=== PATIENT | female | born 1985 | race Caucasian/White ===

== ENCOUNTER → 2017-01-13 | Outpatient (CLI) | payer BC ==
[~2017-01-13] MED LIST: ACET50TA PO; COLACE PO; MILKSUS PO; MOTRIN PO; [UNRECOGNIZED DRUG - OTHER] TOP
--- NOTE | 2017-01-14 05:11 | REP ---
Clinical: Anatomical evaluation twin gestation . Comparison: 10/30/2016 . Findings: Examination demonstrates diamniotic dichorionic twin gestation. Placenta is are identified anteriorly and grade zero without evidence for placenta previa or abruption. Cervix measures 5.9 cm length and appears closed. Concordant growth is noted. Gestational age by LMP 19 weeks 5 days. TWIN A: Fetus in breech presentation along the maternal left side. motion is appreciated. Amniotic fluid volume is normal and the deepest pocket measures 4.3 cm. Gestational age by measurements 20 weeks 1 day. heart rate equals 153 beats per minute. Estimated weight 342 grams (67th percentile). Anatomical assessment demonstrates normal structures including cranium, choroid plexus, cavum, cerebellum/posterior fossa, facial features, lungs, four-chamber heart/ventricular outflow tracts, diaphragm, stomach, cord insertion/three-vessel cord, kidneys/bladder, spine, and extremities. TWIN B: Fetus in cephalic presentation along the maternal right side. motion is appreciated. Amniotic fluid volume is normal and the deepest pocket measures 3.7 cm. Gestational age by measurements 20 weeks 0 days. heart rate equals 165 beats per minute. Estimated weight 336 grams (63rd percentile). Anatomical assessment demonstrates normal structures including cranium, choroid plexus, cavum, cerebellum/posterior fossa, facial features, lungs, four-chamber heart/ventricular outflow tracts, diaphragm, stomach, cord insertion/three-vessel cord, kidneys/bladder, spine, and extremities. Impression: Diamniotic dichorionic twin gestation demonstrating appropriate and concordant interval growth. No gross abnormalities are identified. Anatomical assessment is normal for both fetuses. Signed by Den Ayers MD 01/14/2017 05:03 A
== END ==
LOC: M RAD 14:34
PROVIDERS: ATTEND Advanced Practice Midwife
DX: O30.042 Twin pregnancy, dichorionic/diamniotic, second trimester (principal)

== ENCOUNTER → 2017-02-22 | Outpatient (CLI) | payer BC ==
--- NOTE | 2017-02-23 09:47 | REP ---
TWIN OB ULTRASOUND: Real-time sonographic evaluation of the gravid uterus performed utilizing transabdominal technique. There is a single living intrauterine gestation, estimated gestational age 25 weeks 3 days, EDC 06/04/2017. This is a diamniotic dichorionic twin gestation. Placenta anterior and grade 0 with no previa or abruption. There is concordant growth of both twins. FETUS A: BPD 66 mm 26 weeks 4 days, 73rd percentile HC 242 mm 26 weeks 2 days, 68th percentile AC 211 mm 25 weeks 4 days, 55th percentile FL 46 mm 25 weeks 2 days, 47th percentile HC/AC ratio 1.15. Estimated weight 830 grams, 49th percentile. heart rate 145 beats per minute. Amniotic fluid volume within normal limits with deepest pocket of fluid around fetus A 5.3 cm. Four chamber heart, stomach, cord insertion, and bladder are visualized and are grossly unremarkable. position is breech on the maternal left side. FETUS B: BPD 60 mm 24 weeks 4 days, 33rd percentile HC 237 mm 25 weeks 5 days, 58th percentile AC 220 mm 26 weeks 3 days, 72nd percentile FL 45 mm 25 weeks 0 days, 42nd percentile HC/AC ratio 1.08. Estimated weight 864 grams, 56th percentile. heart rate 143 beats per minute. Amniotic fluid within normal limits with deepest pocket of fluid around fetus B 4.3 cm. Four chamber heart, stomach, bladder are visualized and are grossly unremarkable. position vertex on the maternal right side. Signed by Duke Spencer MD 02/23/2017 05:24 P
== END ==
LOC: M RAD 11:59
PROVIDERS: ATTEND Obstetrics & Gynecology
DX: O30.041 Twin pregnancy, dichorionic/diamniotic, first trimester (principal); Z3A.25 25 weeks gestation of pregnancy; Z36 Encounter for antenatal screening of mother

== ENCOUNTER → 2017-02-24 | Outpatient (CLI) | payer BC ==
[2017-02-24 13:32] LABS: MEAN CORPUSCULAR HEMOGLOBIN 32.2 pg (27.0-33.0); MEAN CORPUSCULAR HGB CONC 33.1 g/dl (32.0-36.5); MEAN CORPUSCULAR VOLUME 97.3 fl (80.0-96.0); WHITE BLOOD COUNT 6.2 K/mm3 (4.0-10.0)
== END ==
LOC: M SMT 08:18
PROVIDERS: ATTEND Obstetrics & Gynecology
DX: O30.041 Twin pregnancy, dichorionic/diamniotic, first trimester (principal)

== ENCOUNTER → 2017-04-06 | Outpatient (CLI) | payer BC ==
--- NOTE | 2017-04-06 10:24 | REP ---
Obstetric sonography: Multiple gestation. History: Twin gestation. Second trimester. Growth study. Findings: Scanning through the gravid uterus demonstrates diamniotic dichorionic twin gestation. Twin A is cephalic and along the maternal left. Twin B is cephalic along maternal right. Placentas are anterior grade 1 without evidence of placenta previa or abruption. Twin B is the presenting fetus at this time, low in the pelvis. Amniotic fluid is subjectively normal around both twins. The deepest pocket adjacent to twin A measures 3 cm and that adjacent to twin B 2.6 cm. There has been appropriate and concordant interval growth. No extrauterine abnormalities observed. The following anatomic structures are observed in twin A and are felt to be unremarkable: cranium, four-chamber heart, left-sided stomach, kidneys and bladder. The following anatomic structures are observed in twin B today and are felt to be unremarkable: cranium, four-chamber heart, left-sided stomach, abdominal wall cord insertion, kidneys and bladder. Biometry chart twin A: BPD 7.8 cm = 31 weeks 3 days Head circumference 29.0 cm = 32 weeks 0 days Abdominal circumference 30.1 cm = 34 weeks 0 days Femur length 6.1 cm = 31 weeks 4 days HC/AC ratio normal 0.97, cephalic index normal 0.75, estimated weight 2068 grams, 4 pounds 8 ounces, 70th percentile. heart rate 122 beats per minute. Biophysical profile score 8 out of a possible 8. S/D ratio in the umbilical cord artery by Doppler normal 3.0 Biometry chart twin B: BPD 7.8 cm = 31 weeks 3 days Head circumference 29.2 cm = 32 weeks 1 day Abdominal circumference 28.5 cm = 32 weeks 4 days Femur length 6.0 cm = 31 weeks 1 day HC/AC ratio normal 1.02, cephalic index normal 0.74, estimated weight 1878 grams, 4 pounds 2 ounces, 51st percentile. heart rate 144 beats per minute. Biophysical profile score 8 out of a possible 8. S/D ratio in the umbilical cord artery by Doppler normal 2.99. Impression: Viable twin intrauterine gestation both cephalic, fetus B presenting. Appropriate and concordant interval growth. Signed by Jacek Bennett MD 04/06/2017 02:51 P
== END ==
LOC: M RAD 08:51
PROVIDERS: ATTEND Advanced Practice Midwife
DX: O30.043 Twin pregnancy, dichorionic/diamniotic, third trimester (principal); Z3A.31 31 weeks gestation of pregnancy; Z36 Encounter for antenatal screening of mother

== ENCOUNTER → 2017-04-15 | Outpatient (CLI) | payer BC ==
[2017-04-15 14:01] LABS: MEAN CORPUSCULAR HEMOGLOBIN 32.2 pg (27.0-33.0); MEAN CORPUSCULAR HGB CONC 33.2 g/dl (32.0-36.5); RED CELL DISTRIBUTION WIDTH 14.3 % (11.5-14.5); WHITE BLOOD COUNT 7.9 K/mm3 (4.0-10.0)
== END ==
LOC: M SMT 10:57
PROVIDERS: ATTEND Specialist
DX: O30.043 Twin pregnancy, dichorionic/diamniotic, third trimester (principal); Z3A.36 36 weeks gestation of pregnancy

== ENCOUNTER → 2017-04-27 | Outpatient (CLI) | payer BC ==
--- NOTE | 2017-04-27 11:58 | REP ---
Obstetric ultrasound twin gestation. Follow-up study: Twin A is on the maternal left in a cephalic presentation. Twin B is on the right in a cephalic presentation. The as a diamniotic dichorionic twin gestation. The placentas are anterior and grade 1 maturity. There is no placenta previa or placental abruptio. heart weight of twin A is 130 beats per minute. For twin B there is cardiac activity, however, the heart rate is not recorded. Cervical length is not recorded. The deepest amniotic fluid pocket for twin A is 8.7 cm. The deepest amniotic fluid pocket for twin B is 6.4 cm. Based on today's ultrasound the gestational age for twin A is 35 weeks 2 days, and for twin B 34 weeks 6 days. There has been concordant growth. The weight for twin A is 2756 grams and for twin B 2524 grams. This is the 69th percentile for twin A and 51st percentile for twin B. Umbilical cord Doppler assessment: Twin A SD ratio 2.36 Resistive index 0.58 Diastolic flow velocity 23.9 cm/sec. Twin B : SD ratio 2.12 Resistive index 0.53 Diastolic flow velocity 16.9 cm/sec. These values are in their normal ranges. anatomy was normal on prior studies and is not repeated today. However, during the examination incidentally visualized and normal are for twin A four-chamber heart and stomach.; and for twin B four-chamber heart, stomach, kidneys and bladder. Signed by Duke Kapoor MD 04/27/2017 11:50 A
== END ==
LOC: M RAD 10:21
PROVIDERS: ATTEND Advanced Practice Midwife
DX: O30.043 Twin pregnancy, dichorionic/diamniotic, third trimester (principal); Z3A.35 35 weeks gestation of pregnancy

== ENCOUNTER → 2017-05-03 | Outpatient (REF) | payer BC ==
[~2017-05-03] MED LIST changes: +DICL10TA PO; +IBUP-1114 PO; +PRENTAB9 PO
== END ==
LOC: M LAB REF 16:50
PROVIDERS: ATTEND Specialist
DX: O30.043 Twin pregnancy, dichorionic/diamniotic, third trimester (principal); Z3A.36 36 weeks gestation of pregnancy

== ENCOUNTER 2017-05-22 11:43 | Inpatient (IN) | payer BC, MEDICAID ==
[2017-05-22] VITALS (15 sets, daily range): BP systolic 131–146; BP diastolic 66–90
[~2017-05-22] VITALS: Ht 167.6 cm; Wt 72.0 kg
[~2017-05-22 11:43] MED LIST changes: -DICL10TA PO; -IBUP-1114 PO; -PRENTAB9 PO
[2017-05-22] MEDS ORDERED: DICL10TA PO (12:07)
--- NOTE | 2017-05-22 13:49 | HPE ---
DATE OF ADMISSION: 05/22/2017 HISTORY: 31-year-old 2, para 1 female at 38-1/27 weeks gestation by last menstrual period (LMP), consistent with 9 week ultrasound, estimated date of confinement (EDC) 06/04/2017, who presents for labor induction. The indication for induction is twin gestation. She has occasional contractions. She denies vaginal bleeding. COURSE: The patient initiated care at 8 weeks gestation on 10/27/2016 when she was diagnosed with Opal twin gestation. care included antepartum testing which was reassuring. Ultrasounds for growth showed adequate growth in both twins. OBSTETRICAL HISTORY: 1. November 2013, 41 week vaginal delivery, 7 pound, 7ounce female infant, no complications. MEDICAL HISTORY: None. SURGICAL HISTORY: None. ALLERGIES: None. SOCIAL HISTORY: Patient is . Patient denies cigarettes, alcohol or drug use. FAMILY HISTORY: Noncontributory. PHYSICAL EXAMINATION: Blood pressure 124/74, pulse 84. She is in no apparent distress. Head and neck exam is normal. Lungs clear. Heart regular rate and rhythm. Abdomen nontender, gravid. heart tone category 1 times two. Sterile vaginal exam 3-4 cm, 80% effaced, -2 station, vertex. Extremities nontender. LABORATORIES: Blood type O positive. Rubella equivocal. RPR nonreactive. Diabetes screen 88. Group B Streptococcus (GBS) negative on 05/03/2017. ASSESSMENT: 31-year-old 2, para 1 female at 38-1/2 weeks gestation with dichorionic diamniotic twins who presents for labor induction. Patient was admitted on 05/22/2017. The risks of induction were discussed.
[2017-05-22 14:03] LABS: MEAN CORPUSCULAR HEMOGLOBIN 31.9 pg (27.0-33.0); MEAN CORPUSCULAR HGB CONC 34.8 g/dl (32.0-36.5); MEAN CORPUSCULAR VOLUME 91.7 fl (80.0-96.0); RED CELL DISTRIBUTION WIDTH 13.8 % (11.5-14.5)
[2017-05-22] MEDS ORDERED: LR 1,000 ML IV SCH (14:28)
[2017-05-22] MEDS ORDERED: OXYTOCIN DRIP 30 UNITS in APPROPRIATE DILUENT 1 EA IV SCH (14:30)
[2017-05-22] MEDS ORDERED: FENTANYL 2MCG/ML ROPIVACAINE 0.2% IN 0.9% NACL 200ML IVBAG As Ordered ONE (18:22)
[2017-05-22] MEDS ORDERED: REFRIGERATOR IV KEYS XX PRN (19:05)
[2017-05-22] MEDS ORDERED: NALOXONE INJ 0.4 MG/1 ML VIAL (J2310) IV PRN (19:05)
[2017-05-22] MEDS ORDERED: diphenhydrAMINE INJ 50MG/ML VIAL (J1200) IV PRN (19:05)
[2017-05-22] MEDS ORDERED: ePHEDrine SULFATE 25 MG/5 ML(5MG/ML) SYRINGE IV PRN (19:05)
[2017-05-22] MEDS ORDERED: LACTATED RINGER'S 1000 ML IV PRN (19:05)
[2017-05-22] MEDS ORDERED: ONDANSETRON 4MG/2ML VIAL (J2405) IV PRN ×2 (19:05→22:00)
[2017-05-22] MEDS ORDERED: EPIDURAL COMMENT XX SCH (19:05)
[2017-05-22] MEDS ORDERED: FENTANYL/ROPIVACAINE/NACL BAG 200 ML EPIDURAL SCH (19:05)
[2017-05-22] MEDS ORDERED: EPIDURAL/PCA KEYS XX PRN (19:05)
[2017-05-22] MEDS ORDERED: DIBUCAINE 1% OINTMENT 30GM TOP PRN (22:00)
[2017-05-22] MEDS ORDERED: ACETAMINOPHEN 500 MG TAB PO PRN (22:00)
[2017-05-22] MEDS ORDERED: MEASLES,MUMPS,RUBELLA VACCINE INJ (MMR-II) (90707) SC SCH (22:00)
[2017-05-22] MEDS ORDERED: DOCUSATE SODIUM 100 MG CAP PO PRN (22:00)
[2017-05-22] MEDS ORDERED: OXYTOCIN DRIP 30 UNITS in APPROPRIATE DILUENT 1 EA IV ONE (22:00)
[2017-05-22] MEDS ORDERED: METHYLERGONOVINE MALEATE 0.2 MG TAB PO PRN (22:00)
[2017-05-22] MEDS ORDERED: RHOGAM 300 MCG (1500 IU) INJ (J2790) IM SCH (22:00)
[2017-05-22] MEDS: IBUPROFEN 800 MG TAB PO PRN (23:21)
[2017-05-23] VITALS (7 sets, daily range): BP systolic 138–166; BP diastolic 55–90
[2017-05-23] MEDS: PRENATAL VITAMINS CHEWABLE TABLET PO SCH (08:46)
[2017-05-23] MEDS: IBUPROFEN 800 MG TAB PO PRN ×2 (08:47→19:49)
[2017-05-24 02:29] VITALS: BP 147/69
[2017-05-24 05:49] VITALS: BP 150/52
--- NOTE | 2017-05-24 08:29 | DN ---
DATE OF DELIVERY: 05/22/2017 PREDELIVERY DIAGNOSIS: 38-1/7 weeks Opal twins. POSTOPERATIVE DIAGNOSIS: Delivered. PROCEDURE: Spontaneous vaginal delivery. VALET CASHIER: Haroon Angel MD ANESTHESIA: Epidural. ESTIMATED BLOOD LOSS: 300 mL. FINDINGS: Twin A female, 6 pounds 5 ounces, scores 9 and 9, vertex position. Twin B male, 6 pounds 6 ounces, scores 9 and 9, vertex position. Diamniotic dichorionic placentas. OPERATIVE SUMMARY: After a short second stage, the patient had spontaneous delivery of twin A, which was a 6 pound 5 ounce female infant, scores of 9 and 9. There was no nuchal cord. The shoulders delivered with ease. The infant was handed to the mother and cried spontaneously. The cord was doubly clamped and cut. After appropriate amount of time, ultrasound guidance was used to ensure that twin B was vertex. Assisted rupture of membranes was performed on twin B. After a short second stage, twin B delivered vaginally for a 6 pound 6 ounce male infant, scores 9 and 9, vertex position. A nuchal cord times one was reduced. Shoulders delivered spontaneously with ease. The cried spontaneously when handed to the mother. Cord was doubly clamped and cut. The placenta delivered spontaneously and appeared to be intact. The patient received IV pitocin immediately for delivery of the placenta. There were no vaginal lacerations present. Sponge counts were correct.
[2017-05-24] MEDS ORDERED: IBUP-1114 PO (08:38)
[2017-05-24] MEDS ORDERED: ACET50TA PO (08:38)
[2017-05-24] MEDS ORDERED: PRENTAB9 PO (08:38)
[2017-05-24] MEDS ORDERED: ADACEL/BOOSTRIX VACCINE (DIPHTH/PERTUSS/ACELL/TETANUS)0.5ML SYR (90715) IM ONE ×2 (09:00)
[2017-05-24] MEDS: PRENATAL VITAMINS CHEWABLE TABLET PO SCH (09:13)
== END 2017-05-24 10:35 | disposition home or self-care (01) | DRG 560 ==
LOC: M LDI 11:43 → M OBS 23:57
PROVIDERS: ADMIT Specialist; ATTEND Specialist
PROC: 10E0XZZ Delivery of Products of Conception, External Approach (ICD-10-PCS; principal; 2017-05-22)
PROC: 10907ZC Drainage of Amniotic Fluid, Therapeutic from Products of Conception, Via Natural or Artificial Opening (ICD-10-PCS; 2017-05-22)
PROC: 3E033VJ Introduction of Other Hormone into Peripheral Vein, Percutaneous Approach (ICD-10-PCS; 2017-05-22)
DX: O30.043 Twin pregnancy, dichorionic/diamniotic, third trimester (principal); Z37.2 Twins, both liveborn; Z3A.38 38 weeks gestation of pregnancy; O69.82X2 Labor and delivery complicated by other cord entanglement, without compression, fetus 2

== ENCOUNTER → 2017-10-05 | Outpatient (CLI) | payer BC ==
[~2017-10-05] MED LIST changes: +DICL10TA PO; +IBUP-1114 PO; +PRENTAB9 PO
--- NOTE | 2017-10-15 10:19 | REP ---
THORACIC SPINE: Study was performed 10/05/2017. It is submitted to me for interpretation 10/15/2017 for reasons unknown to me. There is no definite compression fracture of the thoracic vertebral bodies. There is normal thoracic kyphosis. There is moderate curvature of the thoracic spine convex to the right with a left thoracolumbar curvature more inferiorly. Posterior elements appear intact. IMPRESSION: S-shaped scoliosis. No radiographic evidence of fracture or dislocation. Signed by Duke Spencer MD 10/15/2017 04:57 P
== END ==
LOC: M ADAMS 11:06
PROVIDERS: ATTEND Family Medicine
DX: M41.9 Scoliosis, unspecified (principal)

== ENCOUNTER → 2018-05-18 | Outpatient (REF) | payer BC | LOC: M LAB REF 12:17 | DX: J02.9 Acute pharyngitis, unspecified (principal) | CPT/HCPCS: 87081 ==

== ENCOUNTER → 2019-07-28 | Outpatient (REF) | payer BC ==
[~2019-07-28] MED LIST changes: -ACET50TA PO; +MAPA500T17 PO; +MAPA500T2 PO
[2019-07-28 15:22] LABS: BASO % 0.7 % (0.0-1.0); EOS # 0.1 10^3/uL (0.0-0.5); EOS % 1.2 % (0.0-3.0); HEMATOCRIT 38.9 % (36.0-47.0); HEMOGLOBIN 13.1 g/dl (12.0-15.5); LYMPH # 2.1 10^3/uL (1.5-5.0); LYMPH % 35.8 % (24.0-44.0); MEAN CORPUSCULAR HEMOGLOBIN 33.2 pg (27.0-33.0); MEAN CORPUSCULAR HGB CONC 33.7 g/dl (32.0-36.5); MEAN CORPUSCULAR VOLUME 98.5 fl (80.0-96.0); MONO # 0.6 10^3/uL (0.0-0.8); MONO % 9.4 % (0.0-5.0); NEUTROPHILS # 3.1 10^3/uL (1.5-8.5); NEUTROPHILS % 52.6 % (36.0-66.0); PLATELET COUNT, AUTOMATED 332 10^3/uL (150-450); RED BLOOD COUNT 3.95 10^6/uL (4.00-5.40)
[2019-07-28 16:08] LABS: FREE T4 0.9 NG/DL (0.76-1.46); THYROID STIMULATING HORMONE 1.99 uIU/ML (0.358-3.740); TOTAL 25(OH) VITAMIN D 29.9 NG/ML (30.0-100.0)
== END ==
LOC: M LABDRAW1 12:54
PROVIDERS: ATTEND Physician Assistant Medical
DX: R53.83 Other fatigue (principal)

== ENCOUNTER → 2022-01-08 | Outpatient (CLI) | payer BC ==
[2022-01-08 09:37] LABS: BASO % 0.7 % (0.0-1.0); EOS # 0.1 10^3/uL (0.0-0.5); EOS % 1.1 % (0.0-3.0); HEMATOCRIT 41.4 % (36.0-47.0); HEMOGLOBIN 13.9 g/dl (12.0-15.5); LYMPH # 2.2 10^3/uL (1.5-5.0); LYMPH % 40.3 % (24.0-44.0); MEAN CORPUSCULAR HEMOGLOBIN 32.7 pg (27.0-33.0); MEAN CORPUSCULAR HGB CONC 33.6 g/dl (32.0-36.5); MEAN CORPUSCULAR VOLUME 97.4 fl (80.0-96.0); MONO # 0.4 10^3/uL (0.0-0.8); MONO % 7.7 % (2.0-8.0); NEUTROPHILS # 2.7 10^3/uL (1.5-8.5); NEUTROPHILS % 49.8 % (36.0-66.0); PLATELET COUNT, AUTOMATED 345 10^3/uL (150-450); RED BLOOD COUNT 4.25 10^6/uL (4.00-5.40); WHITE BLOOD COUNT 5.4 10^3/uL (4.0-10.0)
[2022-01-08 10:06] LABS: ALT/SGPT 20 U/L (12-78); BILIRUBIN,TOTAL 0.7 MG/DL (0.2-1.0); BLOOD UREA NITROGEN 14 MG/DL (7-18); CALCIUM LEVEL 9.1 MG/DL (8.5-10.1); CARBON DIOXIDE LEVEL 28 MEQ/L (21-32); CHLORIDE LEVEL 107 MEQ/L (98-107); GLOMERULAR FILTRATION RATE > 60.0 (>60); GLUCOSE, FASTING 70 MG/DL (70-100); POTASSIUM SERUM 4.4 MEQ/L (3.5-5.1); SODIUM LEVEL 140 MEQ/L (136-145); TOTAL PROTEIN 7.4 GM/DL (6.4-8.2)
== END ==
LOC: M WUC 08:11
PROVIDERS: ATTEND Nurse Practitioner Family
DX: R42 Dizziness and giddiness (principal)

== ENCOUNTER → 2022-12-03 | Outpatient (CLI) | payer BC | LOC: M ADAMS 08:03 | PROVIDERS: ATTEND Nurse Practitioner Family | DX: M79.642 Pain in left hand (principal) ==